=== PATIENT | male | born 1985 | race Caucasian/White ===

== ENCOUNTER 2022-05-03 10:59 | Emergency (ER) | payer BC ==
[2022-05-03] MEDS ORDERED: TORAdol 30 mg Injection IM ONE (11:44)
[2022-05-03] MEDS ORDERED: TORAdol 30 mg Injection IV ONE (11:48)
[2022-05-03] MEDS ORDERED: TORAdol 30 mg Injection ONE (11:49)
[2022-05-03] MEDS ORDERED: Zofran 4 MG/2 ML VIAL IV ONE (12:30)
[2022-05-03] MEDS ORDERED: SUBLIMAZE 100 MCG/2 ML IV ONE (12:30)
[2022-05-03] MEDS ORDERED: Zofran 4 MG/2 ML VIAL ONE (12:35)
[2022-05-03] MEDS ORDERED: SUBLIMAZE 100 MCG/2 ML ONE (12:36)
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
--- NOTE | 2022-05-03 14:27 | XRAY ---
Exam: CT of the abdomen and pelvis without IV contrast from 05/03/2014. CTDI: 8.09 mGy Comparison: None. Indication: 37-year-old male with right-sided flank pain/lumbar pain after "back popping". The patient gives a history of prior cholecystectomy. Technique: Non-IV contrast axial images were obtained through the abdomen and pelvis. No oral contrast was given. Reconstructed coronal and sagittal images were created and reviewed. Findings: The lung bases reveal a calcified granuloma within the right middle lobe. Otherwise, the visualized lung bases are clear except for some minimal scarring/atelectasis at the anterior lateral left lung base. I don't believe this is significant. The heart size is normal. Assessment of the solid organs is limited on a non-IV contrast study only. The liver appears of normal size. No gross mass or intrahepatic biliary duct distention is seen. Surgical clips consistent with prior cholecystectomy are noted. The spleen is of normal size and reveals no mass. The pancreas and adrenal glands appear unremarkable. The kidneys reveal some scattered bilateral micro-calculi without obstruction. The kidneys are of normal size. There is no perirenal stranding. There is no hydronephrosis. The ureters appear of normal diameter without evidence of ureterolith. The urinary bladder reveals no stone within it. The abdominal aorta is of normal diameter. No abnormal retroperitoneal lymphadenopathy is seen. There is no free air or bowel containing ventral hernia. A minimal fat-containing umbilical hernia is seen. See sagittal image #85. I do not definitely see the appendix within the right lower quadrant. There is some subtle curvilinear high attenuation material which could possibly represent sutures at the inferior margin of the cecum. Correlate clinically regarding prior appendectomy. I see no inflammatory changes within the right lower quadrant. The bowel is not distended. Some scattered stool is seen throughout the colon. I believe there is also some scattered mild colonic diverticulosis, but no evidence of diverticulitis is seen. No bowel wall thickening is seen. The urinary bladder, seminal vesicles, and prostate gland appear unremarkable. No pelvic mass, abnormal pelvic lymphadenopathy, or free intraperitoneal fluid is seen. A few calcified phleboliths are seen within the lower left pelvis. No inguinal hernia is seen. It appears the patient's right hip is mildly flexed. The bones reveal no acute fracture or aggressive bone lesion. There is a suggestion of some minimal symmetric narrowing of the hip joint spaces. I see no spurring. Impression: 1. There are some scattered nonobstructing micro-calculi within both kidneys. However, no hydronephrosis, ureteral stone, or urinary bladder stone is seen. The remainder of the kidneys appears unremarkable. 2. The appendix is not definitely seen within the right lower quadrant. I do note some minimal curvilinear high attenuation density at the inferior margin of the cecum. I wonder whether this represents suture material from prior appendectomy. Correlate clinically. There are no surrounding inflammatory changes. 3. Mild diffuse colonic diverticulosis without evidence of diverticulitis. 4. Status post cholecystectomy. 5. Minimal fat-containing umbilical hernia and apparent slight symmetric narrowing of the hip joint spaces are seen. For example, see coronal image #89.
--- NOTE | 2022-05-03 14:35 | XRAY ---
Exam: Reconstructed images of the lumbar spine from the CT of the abdomen and pelvis without IV contrast performed on 05/03/2022. CTDI: 8.09 mGy Comparison: CT of the abdomen and pelvis without IV contrast from same day. Indication: 37-year-old male with right-sided flank pain/lumbar pain status post "back popping". Technique: Targeted axial images were obtained through the lumbar spine from the lower aspect of T12 to the lower pelvis below the coccyx using the prior CT data for the abdomen/pelvis. Reconstructed coronal and sagittal images were created and reviewed. Findings: I see 5 [id number] lumbar-type vertebra. No acute lumbar spine fracture, AP subluxation, or spondylolysis is seen. The lumbar interspace heights appear well-maintained. No central canal spinal stenosis is seen. No facet joint arthropathy is seen. The sacroiliac joints appear unremarkable. No abnormality of the sacrum or coccyx is seen. I see no definite evidence of significant disc protrusion/herniation. Impression: 1. No significant lumbar spine abnormality is seen, as discussed.
[2022-05-03 14:50] VITALS: BP 124/91; PULSE 66
[2022-05-03 14:56] VITALS: O2SAT 97
== END 2022-05-03 15:00 | disposition home or self-care (01) ==
LOC: ED 10:59
DX: M54.50 Low back pain, unspecified (principal)
CPT/HCPCS: 36000; 74176; 76376; 96374; 96375; 99284; J1885; J2405; J3010